=== PATIENT | male | born 1990 | race Two or more races ===

== ENCOUNTER 2025-04-25 08:36 | Emergency (ER) | payer SELFPAY ==
[~2025-04-25] VITALS: Ht 180.3 cm; Wt 98.0 kg
[2025-04-25 08:38] VITALS: O2SAT 98
[2025-04-25 09:56] LABS: HEMATOCRIT. 38.5 % (42.0-52.0); HEMOGLOBIN. 12.5 g/dL (14.0-18.0); MEAN PLATELET VOLUME 8.1 fl (7.4-10.4); PLATELET 311 x1000/uL (130-400); RED BLOOD CELL COUNT 4.74 mill/uL (4.7-6.1); RED CELL DISTRIBUTION WIDTH 14.1 % (11.6-14.6)
[2025-04-25 10:09] LABS: CREATININE 1.1 mg/dL (0.6-1.3); UREA NITROGEN BLOOD 11 mg/dL (9-23)
[2025-04-25 10:11] LABS: ASPARTATE AMINOTRANSFERASE 32 IU/L (<34); BILIRUBIN DIRECT 0.3 mg/dL (<=3.0); BILIRUBIN TOTAL 0.9 mg/dL (0.1-1.0); PROTEIN TOTAL 7.5 g/dL (6.0-8.3)
[2025-04-25 10:15] LABS: INR 1.0
[2025-04-25] MEDS ORDERED: ESMOLOL 2500MG PREMIX 250 ML IV PRN (11:30)
[2025-04-25 11:44] LABS: TROPONIN I HIGH SENSITIVITY 18 ng/L (3.0-53)
[2025-04-25] MEDS: IOHEXOL-350 100 ML BOTTLE ONE (11:46)
[2025-04-25] MEDS: ESMOLOL HCL 10MG/ML 10ML VIAL IV SCH (11:47)
[2025-04-25] MEDS: ESMOLOL 2500MG PREMIX 250 ML IV PRN (11:48)
[2025-04-25 13:41] VITALS: BP 148/102; PULSE 92; RESP 21; TEMP 36.8; O2SAT 99
[2025-04-25 17:52] LABS: EOSINOPHILS % MANUAL 1.0 % (0.0-5.0); LYMPHOCYTES % MANUAL 18.0 % (20.0-50.0); MONOCYTES % MANUAL 16.0 % (2.0-8.0); NEUTROPHILS % MANUAL 65.0 % (45.0-75.0); PLATELET ESTIMATE NORMAL
== END 2025-04-25 13:45 | disposition short-term general hospital (02) ==
LOC: ER 08:36 → EDBEDREQ 10:36 → EDBEDREQTM 10:36 → CANBEDREQ 13:30 → ER 13:45
DX: I71.00 Dissection of unspecified site of aorta (principal); J34.89 Other specified disorders of nose and nasal sinuses
CPT/HCPCS: 99291; 96365; 71275; 71045; 96375; 80076; 80048; 83880; 85025; 85379; 85610; 85730; 84484; 36415; 93005; Q9967; J3490